=== PATIENT | male | born 1995 | race Caucasian/White ===

== ENCOUNTER 2017-02-03 19:27 | Emergency (ER) | payer SELFPAY ==
[~2017-02-03] VITALS: Ht 185.4 cm; Wt 95.3 kg
== END 2017-02-04 00:21 | disposition home or self-care (01) ==
LOC: ER 19:27
DX: Z76.0 Encounter for issue of repeat prescription (principal); I10 Essential (primary) hypertension; E05.90 Thyrotoxicosis, unspecified without thyrotoxic crisis or storm; J45.909 Unspecified asthma, uncomplicated
CPT/HCPCS: 99282

== ENCOUNTER 2017-03-06 14:26 | Emergency (ER) | payer SELFPAY ==
[~2017-03-06] VITALS: Ht 185.4 cm; Wt 95.3 kg
[2017-03-06] MEDS ORDERED: PROPRANOLOL HCL40 MG PO (15:01)
== END 2017-03-06 16:16 | disposition home or self-care (01) ==
LOC: ER 14:26
DX: Z76.0 Encounter for issue of repeat prescription (principal); E05.90 Thyrotoxicosis, unspecified without thyrotoxic crisis or storm; F17.210 Nicotine dependence, cigarettes, uncomplicated
CPT/HCPCS: 99282